=== PATIENT | male | born 1955 | race Two or more races ===

== ENCOUNTER 2023-02-11 06:55 | Day surgery (SDC) | payer OTHER | END 2023-02-11 11:45 | disposition home or self-care (01) | LOC: AMB-ENDOS 06:55 | PROVIDERS: ATTEND Surgery | DX: D12.0 Benign neoplasm of cecum (principal); D12.2 Benign neoplasm of ascending colon; K92.1 Melena; K57.30 Diverticulosis of large intestine without perforation or abscess without bleeding; Z20.822 Contact with and (suspected) exposure to COVID-19; Z88.2 Allergy status to sulfonamides; Z88.1 Allergy status to other antibiotic agents ==

== ENCOUNTER 2023-05-21 08:28 | Inpatient (IN) | payer OTHER ==
[~2023-05-21] VITALS: Ht 185.4 cm; Wt 83.5 kg
[2023-05-21] MEDS ORDERED: NEUPRO1 EACH TOP (14:33)
[2023-05-21] MEDS ORDERED: SYNTHROID88 MCG PO (14:33)
[2023-05-21] MEDS ORDERED: ROSUVASTATIN CAL5 MG PO (14:33)
[2023-05-21] MEDS ORDERED: COZAAR100 MG PO (14:33)
[2023-05-21] MEDS ORDERED: CIALIS20 MG PO (14:34)
[2023-05-21] MEDS ORDERED: TESTIM5 GM TOP (14:35)
[2023-05-21] MEDS ORDERED: CLONAZEPAM0.5 MG PO (14:35)
[2023-05-27] MEDS ORDERED: BENZTROPINE MESY1 MG (07:52)
[2023-05-27] MEDS ORDERED: TESTOSTERO200 MG/1 M (07:52)
[2023-05-29] MEDS ORDERED: HYOSCYAMINE0.125 M1 SL (09:55)
[2023-05-29] MEDS ORDERED: GABAPENTIN300 MG PO (09:56)
[2023-05-29] MEDS ORDERED: LACTULOSE10 GM/152 PO (09:56)
[2023-05-29] MEDS ORDERED: INTESTINEX680 M1 PO (09:57)
[2023-05-29] MEDS ORDERED: POLY119PG PO (09:57)
[2023-05-29] MEDS ORDERED: 8 HOUR PAIN RE650 M1 PO (09:59)
== END 2023-05-29 13:26 | disposition home or self-care (01) | DRG 330 ==
LOC: SURG 05-27 06:00 → O/R 05-27 06:00 → SURG 05-27 09:15
PROVIDERS: Internal Medicine Geriatric Medicine; ADMIT Surgery; ATTEND Surgery
PROC: 07BC4ZZ Excision of Pelvis Lymphatic, Percutaneous Endoscopic Approach (ICD-10-PCS; 2023-05-27)
PROC: 0DTF4ZZ Resection of Right Large Intestine, Percutaneous Endoscopic Approach (ICD-10-PCS; principal; 2023-05-27 14:00)
DX: D12.2 Benign neoplasm of ascending colon (principal); K92.1 Melena; R59.0 Localized enlarged lymph nodes; I11.9 Hypertensive heart disease without heart failure; I25.10 Atherosclerotic heart disease of native coronary artery without angina pectoris; Z95.1 Presence of aortocoronary bypass graft; G20 Parkinson's disease; E03.9 Hypothyroidism, unspecified

== ENCOUNTER → 2023-05-22 10:36 | Outpatient (CLI) | payer OTHER ==
[~2023-05-22 10:36] MED LIST: CIALIS20 MG PO; CLONAZEPAM0.5 MG PO; COZAAR100 MG PO; NEUPRO1 EACH TOP; ROSUVASTATIN CAL5 MG PO; SYNTHROID88 MCG PO; TESTIM5 GM TOP
== END | disposition home or self-care (01) ==
LOC: LAB 10:36
PROVIDERS: ATTEND Internal Medicine Geriatric Medicine
DX: D69.6 Thrombocytopenia, unspecified (principal); D68.9 Coagulation defect, unspecified